=== PATIENT | male | born 1985 | race Caucasian/White ===

== ENCOUNTER 2020-04-24 08:41 | Outpatient (CLI) | payer OTHER ==
[2020-04-25 13:11] LABS: SARS-CoV-2 MS2 Positive; SARS-CoV-2 N Gene Negative; SARS-CoV-2 S Gene Negative; SARS-CoV-2 orf1ab Negative
== END 2020-04-24 08:42 | disposition home or self-care (01) ==
LOC: LABSCS 08:41
PROVIDERS: ATTEND Internal Medicine Critical Care Medicine
DX: Z01.812 Encounter for preprocedural laboratory examination (principal); Z11.59 Encounter for screening for other viral diseases; G47.33 Obstructive sleep apnea (adult) (pediatric)
CPT/HCPCS: 87635; U0003

== ENCOUNTER 2020-04-26 19:00 | Outpatient (CLI) | payer OTHER | END 2020-04-26 19:01 | disposition home or self-care (01) | LOC: SLEEPLAB 19:00 | PROVIDERS: ATTEND Internal Medicine Critical Care Medicine | DX: G47.33 Obstructive sleep apnea (adult) (pediatric) (principal); R53.83 Other fatigue; E66.9 Obesity, unspecified; K21.9 Gastro-esophageal reflux disease without esophagitis; I10 Essential (primary) hypertension; G47.10 Hypersomnia, unspecified; G47.00 Insomnia, unspecified; Z68.43 Body mass index [BMI] 50.0-59.9, adult | CPT/HCPCS: 95811 ==

== ENCOUNTER 2022-08-19 11:45 | Outpatient (CLI) | payer BC | END 2022-08-19 11:46 | disposition home or self-care (01) | LOC: CTENTCT 11:45 | PROVIDERS: ATTEND Otolaryngology Plastic Surgery within the Head & Neck | DX: J32.9 Chronic sinusitis, unspecified (principal) | CPT/HCPCS: 70486 ==

== ENCOUNTER 2022-10-07 17:21 | Outpatient (CLI) | payer BC | END 2022-10-07 17:22 | disposition home or self-care (01) | LOC: LABBT 17:21 | PROVIDERS: ATTEND Otolaryngology Plastic Surgery within the Head & Neck | DX: Z01.810 Encounter for preprocedural cardiovascular examination (principal); J34.2 Deviated nasal septum; J30.9 Allergic rhinitis, unspecified; J32.9 Chronic sinusitis, unspecified; J34.3 Hypertrophy of nasal turbinates; H65.20 Chronic serous otitis media, unspecified ear; H69.83 Other specified disorders of Eustachian tube, bilateral; J35.3 Hypertrophy of tonsils with hypertrophy of adenoids; K13.79 Other lesions of oral mucosa; Z99.89 Dependence on other enabling machines and devices | CPT/HCPCS: 93005; 93010 ==

== ENCOUNTER 2022-10-09 10:03 | Day surgery (SDC) | payer BC ==
[2022-10-08 12:04] VITALS: BMI 51.3
[2022-10-09] MEDS ORDERED: Oxymetazoline HCl 0.05% (30 ML BOT) ONE ×2 (11:24→12:25)
[2022-10-09] MEDS ORDERED: Lidocaine 1% (PF) 30 ML VIAL ONE (12:25)
[2022-10-09] MEDS ORDERED: Bacitracin Zinc Ointment 30 gm TUBE ONE (12:25)
[2022-10-09] MEDS ORDERED: EPINEPHrine 1 MG/ML AMP ONE (12:25)
[2022-10-09] MEDS ORDERED: Fentanyl 250 MCG/5 ML VIAL ONE (12:35)
[2022-10-09] MEDS ORDERED: SUGAMMADEX SODIUM 200 MG/2 ML VIAL ONE (12:42)
[2022-10-09] MEDS ORDERED: PROPOFOL 200 MG/20 ML VIAL ONE (12:52)
[2022-10-09] MEDS ORDERED: Rocuronium Bromide 10 MG/ML (10ML VIAL) ONE (12:52)
[2022-10-09] MEDS ORDERED: Dexamethasone 20 MG/5 ML VIAL ONE (12:52)
[2022-10-09] MEDS ORDERED: Ondansetron PF 4 MG/2 ML Vial ONE (12:52)
[2022-10-09] MEDS ORDERED: Succinylcholine Chloride 100 MG/5 ML SYRINGE FS ONE (12:52)
[2022-10-09] MEDS ORDERED: Ferric Subsulfate (ASTRINGYN) 8 GM VIAL ONE (13:05)
[2022-10-09] MEDS ORDERED: methylPREDNISolone Acetate 40 mg/ml Vial ONE (13:19)
[2022-10-09] MEDS ORDERED: hydrALAZINE 20 MG/ML VIAL ONE ×2 (13:57→14:18)
[2022-10-09] MEDS ORDERED: Fentanyl 100 MCG/2 ML VIAL ONE (14:42)
== END 2022-10-09 17:36 | disposition home or self-care (01) ==
LOC: SDC 10:03
PROVIDERS: ATTEND Otolaryngology Plastic Surgery within the Head & Neck
PROC: 099T8ZZ Drainage of Left Frontal Sinus, Via Natural or Artificial Opening Endoscopic (ICD-10-PCS; principal; 2022-10-09)
PROC: 09TV8ZZ Resection of Left Ethmoid Sinus, Via Natural or Artificial Opening Endoscopic (ICD-10-PCS; principal; 2022-10-09)
PROC: 095L0ZZ Destruction of Nasal Turbinate, Open Approach (ICD-10-PCS; principal; 2022-10-09)
PROC: 8E09XBZ Computer Assisted Procedure of Head and Neck Region (ICD-10-PCS; principal; 2022-10-09)
PROC: 0CTPXZZ Resection of Tonsils, External Approach (ICD-10-PCS; principal; 2022-10-09)
PROC: 099S8ZZ Drainage of Right Frontal Sinus, Via Natural or Artificial Opening Endoscopic (ICD-10-PCS; principal; 2022-10-09)
PROC: 09SM0ZZ Reposition Nasal Septum, Open Approach (ICD-10-PCS; principal; 2022-10-09)
PROC: 09TU8ZZ Resection of Right Ethmoid Sinus, Via Natural or Artificial Opening Endoscopic (ICD-10-PCS; principal; 2022-10-09)
PROC: 0CTQXZZ Resection of Adenoids, External Approach (ICD-10-PCS; principal; 2022-10-09)
PROC: 0CTNXZZ Resection of Uvula, External Approach (ICD-10-PCS; principal; 2022-10-09)
DX: J32.9 Chronic sinusitis, unspecified (principal); J34.2 Deviated nasal septum; J34.3 Hypertrophy of nasal turbinates; J34.89 Other specified disorders of nose and nasal sinuses; J35.01 Chronic tonsillitis; K13.79 Other lesions of oral mucosa; G47.33 Obstructive sleep apnea (adult) (pediatric); I10 Essential (primary) hypertension; J30.9 Allergic rhinitis, unspecified; F17.210 Nicotine dependence, cigarettes, uncomplicated; H65.22 Chronic serous otitis media, left ear; H69.83 Other specified disorders of Eustachian tube, bilateral; E66.01 Morbid (severe) obesity due to excess calories; Z68.43 Body mass index [BMI] 50.0-59.9, adult; Z79.899 Other long term (current) drug therapy
CPT/HCPCS: 88304; J0171; J0360; J1030; J1100; J2001; J2405; J2704; J3010